=== PATIENT | female | born 1980 | race Caucasian/White ===

== ENCOUNTER → 2020-10-01 | Outpatient (CLI) | payer OTHER ==
[2020-10-01 09:51] LABS: BASOPHIL % 0.7 % (0.2-1.3); PLATELET COUNT 246 x10^3mcL (179-408); RED CELL DISTRIBUTION WIDTH 14.1 % (12.3-17.7)
[2020-10-01 10:11] LABS: ALKALINE PHOSPHATASE 41 U/L (46-116); ALT/SGPT 16 U/L (14-59); AST/SGOT 14 U/L (15-37); BILIRUBIN TOTAL 0.4 mg/dL (0.20-1.00); CALCIUM 8.7 mg/dL (8.5-10.1); CARBON DIOXIDE 26.4 mmol/L (21-32); CHLORIDE SERUM 105 mmol/L (98-107); CHOLESTEROL 181 mg/dL (<200); CREATININE SERUM 0.9 mg/dL (0.6-1.0); GFR1 > 60 mL/min; GLUCOSE SERUM 82 mg/dL (74-106); MAGNESIUM 1.8 mg/dL (1.8-2.4); PHOSPHOROUS 2.7 mg/dL (2.5-4.9); POTASSIUM SERUM 4.1 mmol/L (3.5-5.1); SODIUM SERUM 139 mmol/L (136-145); TOTAL PROTEIN, SERUM 6.4 g/dL (6.4-8.2); TRIGLYCERIDES 152 mg/dL (<150)
[2020-10-01 10:13] LABS: CHOLESTEROL/HDL RATIO 2.6; HDL CHOLESTEROL 70 mg/dL (40-60); IRON 154 ug/dL (50-170); TOTAL IRON BINDING CAPACITY 476 ug/dL (250-450)
== END | disposition home or self-care (01) ==
LOC: LB 08:45
PROVIDERS: ATTEND Family Medicine
DX: Z01.419 Encounter for gynecological examination (general) (routine) without abnormal findings (principal); Z98.84 Bariatric surgery status
CPT/HCPCS: 84207; 84425